=== PATIENT | female | born 1950 | race Caucasian/White ===

== ENCOUNTER 2017-02-18 06:36 | Day surgery (SDC) | payer MEDICARE, BC ==
[2017-02-14 10:14] LABS: HEMOGLOBIN 11.4 g/dL (12.0-16.0)
[2017-02-14 10:20] LABS: HEMATOCRIT 33.7 % (36.0-48.0)
[2017-02-14 10:26] LABS: BUN (BLOOD UREA NITROGEN) 18 MG/DL (6-23); CALCIUM, SERUM 9.5 MG/DL (8.5-10.4); CHLORIDE, SERUM 103 MMOL/L (96-112); CO2 (CARBON DIOXIDE) 33 MMOL/L (24-34); CREATININE 0.75 MG/DL (0.55-1.02); GFR AFRICAN AMERICAN 95 ML/MIN (>=60); GFR NON AFRICAN AMERICAN 82 ML/MIN (>=60); GLUCOSE, SERUM 95 MG/DL (60-99); POTASSIUM, SERUM 3.6 MMOL/L (3.5-5.3); SODIUM, SERUM 142 MMOL/L (135-148)
--- NOTE | ~2017-02-18 | OP ---
Record Of Operation [facility] [address] [place]. [address] NAME: GEORGES REGALADO : 46 STATUS : REG [facility] PAT#: [id number] AGE: 66 ADM/REG DATE : 02/18/17 MR#: [id number] REPORT SERV DATE: 02/18/17 DICTATED BY: GREGORY QUILES III DATE: 02/18/17 REPORT STATUS : Draft TRANSCRIBED BY: MODL DATE: 02/18/17 DATE OF PROCEDURE: 02/18/2017 PREOPERATIVE DIAGNOSES: 1. Rotator cuff tendinosis with subacromial bursitis and impingement syndrome. 2. Osteoarthritis, left shoulder. POSTOPERATIVE DIAGNOSES: 1. Rotator cuff tendinosis with subacromial bursitis and impingement syndrome. 2. Osteoarthritis, left shoulder. 3. Anterior labral tear and hypertrophic synovitis. SURGICAL PROCEDURE PERFORMED: 1. Arthroscopic debridement of anterior labral tear. 2. Arthroscopic partial synovectomy. 3. Arthroscopic decompression, acromioplasty, and subacromial bursectomy, left shoulder. SURGEON: Gregory Quiles M.D. MRB ENGINEER: Padma Menon. ANESTHESIA: General. ANTIBIOTICS: Ancef 2 g. COMPLICATIONS: None. POSITION: Beach chair. MEDICATIONS: Interscalene block for postoperative pain control. PROCEDURE IN DETAIL: The patient was brought to the operating room, placed on the table in supine position, and general anesthesia was induced. 2 g Ancef was administered intravenously in the operating room, and an interscalene block was provided per Anesthesia Department for postoperative pain control. Left upper extremity was prepped and draped in the usual sterile fashion. With the pneumonic arm benson in proper position (Spider arm benson). Assuring good anesthesia, a standard posterior portal was provided to the glenohumeral joint. It was inflated with sterile normal saline by means of the arthroscopic pump. Immediately obvious was grade 4 changes to the glenoid with the exposed bone. There was grade 2 to 3 changes in the humeral head, but still some cartilage coverage. There was an anterior labral tear with hypertrophic synovial tissue present. Biceps tendon appeared to be intact, but a little thickened right at its insertion. The undersurface of the rotator cuff complex was intact, but had some fraying. The subscapularis was intact. Posterior and inferior capsule labral structures were fairly normal. A Switching Stick was used to create an anterior portal and debridement of anterior labral tear was carried out with a 4.5 shaver. Some debridement of the humeral head was carried out for some soft Record Of Operation [address] [address] NAME: GEORGES REGALADO : 46 STATUS : REG [facility] PAT#: [id number] AGE: 66 ADM/REG DATE : 02/18/17 MR#: [id number] REPORT SERV DATE: 02/18/17 DICTATED BY: GREGORY QUILES III DATE: 02/18/17 REPORT STATUS : Draft TRANSCRIBED BY: MODL DATE: 02/18/17 cartilage. A partial synovectomy was carried out in the anterior compartment and around the biceps insertion. Minimal debridement was carried out to the rotator cuff complex. The arthroscope was then switched to the subacromial space. A straight lateral portal was created. Thickened bursal tissue was debrided with a 4.5 shaver. The Contour wand was used to cauterize the undersurface of the acromion. A high-speed bur was used to perform a decompression, acromioplasty. Rotator cuff complex appeared fairly normal on the bursal surface side. No further pathology was appreciated. Thorough irrigation was carried out. Instrumentation was removed. The glenohumeral joint was injected with 15 mL of 0.5% Marcaine solution and 80 mg of Depo-Medrol. Portals were closed with 4-0 nylon. Sterile dressings were applied, followed by DonJoy sling. The patient tolerated the procedure well and brought to the recovery room in satisfactory condition. STEPHEN/KELSY Gregory Quiles III, M.D. / [id number] CC: Jairo Hurtado III, M.D.
[~2017-02-18 06:36] MED LIST: CALTRA600D PO; CARDCD300 PO; CYMBALTA60 PO; GLUCCHONDR PO; HYDROCHLOROT25 MG PO; KLOR-CON 1010 MEQ PO; L40 PO; LIPITOR40 PO; MCZ25 PO; PRILOSEC40 MG PO; PROAIR HFA INH; PROBIOTIC PO; VITAMIN D2000 UNIT PO; VOLTXR100 PO
== END 2017-02-18 23:59 | disposition home or self-care (01) ==
LOC: MSC 06:36
PROVIDERS: Orthopaedic Surgery
PROC: 0RNK4ZZ Release Left Shoulder Joint, Percutaneous Endoscopic Approach (ICD-10-PCS; 2017-02-18)
PROC: 0RBK4ZZ Excision of Left Shoulder Joint, Percutaneous Endoscopic Approach (ICD-10-PCS; 2017-02-18)
PROC: 0RBK4ZZ Excision of Left Shoulder Joint, Percutaneous Endoscopic Approach (ICD-10-PCS; principal; 2017-02-18 08:45)
DX: S43.402A Unspecified sprain of left shoulder joint, initial encounter (principal); M75.102 Unspecified rotator cuff tear or rupture of left shoulder, not specified as traumatic; M75.52 Bursitis of left shoulder; M75.42 Impingement syndrome of left shoulder; M19.012 Primary osteoarthritis, left shoulder; M65.9 Synovitis and tenosynovitis, unspecified; I10 Essential (primary) hypertension; J42 Unspecified chronic bronchitis; K21.9 Gastro-esophageal reflux disease without esophagitis; F32.9 Major depressive disorder, single episode, unspecified; E66.9 Obesity, unspecified; Z68.42 Body mass index [BMI] 45.0-49.9, adult; Z79.899 Other long term (current) drug therapy; Z88.0 Allergy status to penicillin; Z88.6 Allergy status to analgesic agent
CPT/HCPCS: 80048; 85014; 85018; 93005; A9270-GY; J0690; J1040; J2250; J2405; J2710; J2795; J3010